=== PATIENT | female | born 1955 | race African-American/Black ===

== ENCOUNTER 2021-10-13 14:43 | Inpatient (IN) ==
[2021-10-13 19:13] LABS: Basophils % 0.4 % (0.0-0.8); Eosinophils % 0.5 % (0.00-10.9); Hematocrit 37.5 VOL% (35.7-47.0); Hemoglobin 11.9 GM/DL (12.0-16.0); Immature Granulocytes % 0.4 %; Immature Granulocytes Absolute 0.02 #; Lymphocytes # 0.7 10*3/uL (1.4-4.0); Lymphocytes % 11.9 % (21.3-54.2); Mean Corpuscular HGB Conc 31.7 GM/DL (32-36); Mean Corpuscular Volume 88.2 FL (87-102); Mean Platelet Volume 8.3 FL (9.6-12.0); Monocytes # 0.6 10*3/uL (0.11-0.8); Monocytes % 11.4 % (1.7-12.7); Neutrophils % 75.4 % (38.7-73.9); Platelet Count 340 T/CUMM (130-400); Red Blood Count 4.25 MC/CUMM (3.8-5.5); Red Cell Distribution Width 15.2 % (9.3-17.3); White Blood Count 5.5 T/CUMM (4-12)
[2021-10-13 19:29] LABS: Albumin 3.1 G/DL (3.4-5.0); Calcium 9.6 MG/DL (8.5-10.1); Osmolality,Calculated 269.1 MOS/KG (273-304); Potassium 4.8 MMOL/L (3.5-5.1); Total Protein 8.3 G/DL (6.4-8.2)
[2021-10-13] MEDS ORDERED: FUROSEMIDE 40 MG/4 ML VIAL IV STA (20:09)
[2021-10-13] MEDS ORDERED: GLUCAGON 1 MG VIAL IM PRN (21:58)
[2021-10-13] MEDS ORDERED: hydrALAZINE 20 MG/1 ML VIAL IV PRN (21:59)
[2021-10-13] MEDS ORDERED: ACETAMINOPHEN 325 MG TABLET PO PRN (21:59)
[2021-10-13] MEDS ORDERED: ONDANSETRON 4 MG/2 ML VIAL IV PRN (21:59)
[2021-10-13] MEDS ORDERED: DOCUSATE SODIUM 100 MG CAPSULE PO PRN (21:59)
[2021-10-13] MEDS ORDERED: ALBUTEROL/IPRATROPIUM 3 ML NEB RESP TX PRN (21:59)
[2021-10-13] MEDS ORDERED: DEXTROSE 10% 250 ML BAG IV PRN (22:24)
[2021-10-14] MEDS: HEPARIN 5,000 UNIT/1 ML VIAL SUBCUT SCH ×4 (01:35→23:38)
[2021-10-14 04:40] LABS: Basophils % 0.4 % (0.0-0.8); Eosinophils # 0.1 10*3/uL (0.0-0.87); Eosinophils % 1.6 % (0.00-10.9); Hematocrit 33.7 VOL% (35.7-47.0); Hemoglobin 10.3 GM/DL (12.0-16.0); Immature Granulocytes % 0.4 %; Immature Granulocytes Absolute 0.02 #; Lymphocytes # 0.5 10*3/uL (1.4-4.0); Lymphocytes % 8.9 % (21.3-54.2); Mean Corpuscular HGB Conc 30.6 GM/DL (32-36); Mean Corpuscular Volume 90.8 FL (87-102); Mean Platelet Volume 8.3 FL (9.6-12.0); Monocytes # 0.9 10*3/uL (0.11-0.8); Monocytes % 15.8 % (1.7-12.7); Neutrophils % 72.9 % (38.7-73.9); Platelet Count 288 T/CUMM (130-400); Red Blood Count 3.71 MC/CUMM (3.8-5.5); Red Cell Distribution Width 15.2 % (9.3-17.3); White Blood Count 5.6 T/CUMM (4-12)
[2021-10-14 05:01] LABS: Eosinophils 5 % (0-10); Lymphocytes 6 % (20-55); Platelet Estimate Adequate; Total Cells Counted 100
[2021-10-14 05:02] LABS: Calcium 8.8 MG/DL (8.5-10.1); Osmolality,Calculated 268.9 MOS/KG (273-304); Potassium 4.8 MMOL/L (3.5-5.1)
[2021-10-14] MEDS: FUROSEMIDE 40 MG/4 ML VIAL IV SCH ×2 (08:51→16:48)
[2021-10-14] MEDS ORDERED: carvediloL 12.5 MG TABLET PO SCH (09:00)
[2021-10-14] MEDS: DIGOXIN 0.125 MG TABLET PO SCH ×2 (09:45→16:06)
[2021-10-14] MEDS: ROSUVASTATIN 20 MG TABLET PO SCH (09:45)
[2021-10-14] MEDS: carvediloL 6.25 MG TABLET PO SCH ×2 (09:45→20:15)
[2021-10-14] MEDS: SPIRONOLACTONE 25 MG TABLET PO SCH (09:45)
[2021-10-14] MEDS: ASPIRIN EC 81 MG TABLET PO SCH (09:45)
[2021-10-14 11:29] LABS: Hyaline Casts,Urine 23 /LPF (0-3); Mucus,Urine Occasional /LPF (Occasional); RBC,Urine 275 /HPF (0-4); Squamous Epithelial Cell,Urine Occasional /HPF (0-10)
[2021-10-14 11:36] LABS: Urine Appearance Clear (Clear); Urine Color Yellow (Yellow); Urine Specific Gravity 1.015 (1.001-1.035); Urine pH 5.5 (4.5-8.0)
[2021-10-14 11:37] LABS: Bilirubin,Urine Negative (Negative); Blood, Urine Large mg/dL (Negative); Glucose,Urine (UA) Negative (Negative); Ketones,Urine Negative (Negative); Nitrite,Urine Negative (Negative); Protein,Urine 100 mg/dL (Negative)
[2021-10-14] MEDS ORDERED: cefTRIAXone 1,000 MG in SODIUM CHLORIDE 0.9% 100 ML IV SCH (15:00)
[2021-10-15 05:01] LABS: Basophils % 0.4 % (0.0-0.8); Eosinophils # 0.2 10*3/uL (0.0-0.87); Eosinophils % 3.3 % (0.00-10.9); Hematocrit 34.2 VOL% (35.7-47.0); Hemoglobin 10.8 GM/DL (12.0-16.0); Immature Granulocytes % 0.4 %; Immature Granulocytes Absolute 0.02 #; Lymphocytes # 0.5 10*3/uL (1.4-4.0); Mean Corpuscular HGB Conc 31.6 GM/DL (32-36); Mean Corpuscular Volume 89.5 FL (87-102); Mean Platelet Volume 8.4 FL (9.6-12.0); Monocytes # 0.7 10*3/uL (0.11-0.8); Monocytes % 14.4 % (1.7-12.7); Neutrophils % 71.5 % (38.7-73.9); Platelet Count 304 T/CUMM (130-400); Red Blood Count 3.82 MC/CUMM (3.8-5.5); Red Cell Distribution Width 15.3 % (9.3-17.3); White Blood Count 4.8 T/CUMM (4-12)
[2021-10-15 05:10] LABS: Calcium 9.3 MG/DL (8.5-10.1); Osmolality,Calculated 270.8 MOS/KG (273-304); Potassium 3.7 MMOL/L (3.5-5.1)
[2021-10-15 05:12] LABS: Albumin 2.6 G/DL (3.4-5.0); Bilirubin,Total 0.7 MG/DL (0.20-1.00); Calcium 8.9 MG/DL (8.5-10.1); Osmolality,Calculated 273.5 MOS/KG (273-304); Potassium 3.7 MMOL/L (3.5-5.1); Total Protein 7.5 G/DL (6.4-8.2)
[2021-10-15] MEDS ORDERED: POTASSIUM CHLORIDE RIDER 10 MEQ/100 ML PREMIX IV PRN (08:07)
[2021-10-15] MEDS ORDERED: MAGNESIUM SULF RIDER 2 GM/50 ML PREMIX IV PRN (08:07)
[2021-10-15] MEDS ORDERED: SODIUM CHLORIDE 0.9% 1,000 ML IV SCH (08:30)
[2021-10-15] MEDS: FUROSEMIDE 40 MG/4 ML VIAL IV SCH (09:09)
[2021-10-15] MEDS: HEPARIN 5,000 UNIT/1 ML VIAL SUBCUT SCH ×3 (09:09→23:16)
[2021-10-15] MEDS: ASPIRIN EC 81 MG TABLET PO SCH (09:10)
[2021-10-15] MEDS: ROSUVASTATIN 20 MG TABLET PO SCH (09:10)
[2021-10-15] MEDS: SPIRONOLACTONE 25 MG TABLET PO SCH (09:10)
[2021-10-15] MEDS: carvediloL 6.25 MG TABLET PO SCH ×2 (09:10→20:40)
[2021-10-15 09:57] LABS: Amorphous Crystals,Urine Few /HPF (Few); Mucus,Urine Occasional /LPF (Occasional); RBC,Urine 29 /HPF (0-4); Squamous Epithelial Cell,Urine Occasional /HPF (0-10)
[2021-10-15 09:58] LABS: Bilirubin,Urine Negative (Negative); Blood, Urine Large mg/dL (Negative); Glucose,Urine (UA) Negative (Negative); Ketones,Urine Negative (Negative); Nitrite,Urine Negative (Negative); Protein,Urine 100 mg/dL (Negative); Urine Appearance Clear (Clear); Urine Color Yellow (Yellow)
[2021-10-15] MEDS: DIGOXIN 0.125 MG TABLET PO SCH (12:37)
[2021-10-16 05:38] LABS: Basophils % 0.2 % (0.0-0.8); Eosinophils # 0.2 10*3/uL (0.0-0.87); Hematocrit 32.8 VOL% (35.7-47.0); Hemoglobin 9.9 GM/DL (12.0-16.0); Immature Granulocytes % 0.5 %; Immature Granulocytes Absolute 0.02 #; Lymphocytes # 0.6 10*3/uL (1.4-4.0); Lymphocytes % 13.7 % (21.3-54.2); Mean Corpuscular HGB Conc 30.2 GM/DL (32-36); Mean Corpuscular Volume 91.6 FL (87-102); Mean Platelet Volume 8.7 FL (9.6-12.0); Monocytes # 0.6 10*3/uL (0.11-0.8); Monocytes % 15.4 % (1.7-12.7); Neutrophils % 65.2 % (38.7-73.9); Platelet Count 294 T/CUMM (130-400); Red Blood Count 3.58 MC/CUMM (3.8-5.5); Red Cell Distribution Width 15.6 % (9.3-17.3); White Blood Count 4.2 T/CUMM (4-12)
[2021-10-16 05:56] LABS: Calcium 8.5 MG/DL (8.5-10.1); Osmolality,Calculated 275.2 MOS/KG (273-304); Potassium 3.6 MMOL/L (3.5-5.1)
[2021-10-16] MEDS: HEPARIN 5,000 UNIT/1 ML VIAL SUBCUT SCH ×2 (06:44→16:15)
[2021-10-16] MEDS ORDERED: ETOMIDATE 40 MG/20 ML VIAL IV ONE (09:33)
[2021-10-16] MEDS ORDERED: LIDOCAINE 2% 5 ML VIAL ONE (09:33)
[2021-10-16] MEDS ORDERED: propofoL 200 MG/20 ML VIAL IV ONE (09:33)
[2021-10-16] MEDS ORDERED: PHENYLEPHRINE 1 MG/10 ML SYRINGE IV ONE (09:33)
[2021-10-16] MEDS ORDERED: ONDANSETRON 4 MG/2 ML VIAL ONE (10:23)
[2021-10-16] MEDS ORDERED: SODIUM CHLORIDE 0.9% 1,000 ML IV SCH (10:30)
[2021-10-16] MEDS: FUROSEMIDE 40 MG/4 ML VIAL IV SCH (11:14)
[2021-10-16] MEDS: ASPIRIN EC 81 MG TABLET PO SCH (11:15)
[2021-10-16] MEDS: SPIRONOLACTONE 25 MG TABLET PO SCH (11:15)
[2021-10-16] MEDS: carvediloL 6.25 MG TABLET PO SCH ×2 (11:17→20:47)
[2021-10-16] MEDS: ROSUVASTATIN 20 MG TABLET PO SCH (11:17)
[2021-10-16] MEDS: DIGOXIN 0.125 MG TABLET PO SCH (13:01)
[2021-10-17] MEDS: HEPARIN 5,000 UNIT/1 ML VIAL SUBCUT SCH ×2 (00:20→07:27)
[2021-10-17 03:46] LABS: Basophils % 0.2 % (0.0-0.8); Eosinophils # 0.2 10*3/uL (0.0-0.87); Eosinophils % 4.6 % (0.00-10.9); Hematocrit 32.2 VOL% (35.7-47.0); Hemoglobin 9.5 GM/DL (12.0-16.0); Immature Granulocytes % 0.5 %; Immature Granulocytes Absolute 0.02 #; Lymphocytes # 0.6 10*3/uL (1.4-4.0); Lymphocytes % 14.5 % (21.3-54.2); Mean Corpuscular HGB Conc 29.5 GM/DL (32-36); Mean Corpuscular Volume 92.8 FL (87-102); Mean Platelet Volume 8.1 FL (9.6-12.0); Monocytes # 0.8 10*3/uL (0.11-0.8); Monocytes % 18.2 % (1.7-12.7); Platelet Count 259 T/CUMM (130-400); Red Blood Count 3.47 MC/CUMM (3.8-5.5); Red Cell Distribution Width 15.8 % (9.3-17.3); White Blood Count 4.3 T/CUMM (4-12)
[2021-10-17 04:07] LABS: Eosinophils 7 % (0-10); Lymphocytes 9 % (20-55); Total Cells Counted 100
[2021-10-17 04:08] LABS: Anisocytosis 1+; Platelet Estimate Adequate
[2021-10-17 04:09] LABS: Acanthocytes Few; Helmet Cells Few
[2021-10-17 04:14] LABS: Albumin 2.2 G/DL (3.4-5.0); Bilirubin,Total 0.5 MG/DL (0.20-1.00); Calcium 8.3 MG/DL (8.5-10.1); Potassium 3.6 MMOL/L (3.5-5.1); Total Protein 6.9 G/DL (6.4-8.2)
[2021-10-17] MEDS ORDERED: FUROSEMIDE 40 MG TABLET PO SCH (08:00)
[2021-10-17] MEDS ORDERED: DAPAGLIFLOZIN 10 MG TABLET PO SCH (09:00)
[2021-10-17] MEDS ORDERED: metOLazone 5 MG TABLET PO SCH (09:00)
[2021-10-17] MEDS: ASPIRIN EC 81 MG TABLET PO SCH (09:10)
[2021-10-17] MEDS: carvediloL 6.25 MG TABLET PO SCH (09:10)
[2021-10-17] MEDS: SPIRONOLACTONE 25 MG TABLET PO SCH (09:10)
[2021-10-17] MEDS: ROSUVASTATIN 20 MG TABLET PO SCH (09:10)
[2021-10-17 15:30] VITALS: BP 103/48
== END 2021-10-17 11:42 | disposition home health service (06) | DRG 286 ==
LOC: N.ED 14:43 → N.EDINP 21:57 → SUATTDRO 21:57 → N.TELES 10-14 13:08
PROVIDERS: ADMIT Internal Medicine; ATTEND Internal Medicine

== ENCOUNTER 2022-02-15 21:11 | Inpatient (IN) ==
[2022-02-15 21:38] LABS: Basophils % 0.2 % (0.0-0.8); Eosinophils # 0.1 10*3/uL (0.0-0.87); Eosinophils % 1.7 % (0.00-10.9); Hematocrit 36.3 VOL% (35.7-47.0); Hemoglobin 11.5 GM/DL (12.0-16.0); Immature Granulocytes % 0.4 %; Immature Granulocytes Absolute 0.02 #; Lymphocytes # 0.8 10*3/uL (1.4-4.0); Lymphocytes % 16.6 % (21.3-54.2); Mean Corpuscular HGB Conc 31.7 GM/DL (32-36); Mean Corpuscular Volume 92.1 FL (87-102); Mean Platelet Volume 8.2 FL (9.6-12.0); Monocytes # 0.6 10*3/uL (0.11-0.8); Monocytes % 11.4 % (1.7-12.7); Neutrophils % 69.7 % (38.7-73.9); Platelet Count 262 T/CUMM (130-400); Red Blood Count 3.94 MC/CUMM (3.8-5.5); Red Cell Distribution Width 15.6 % (9.3-17.3); White Blood Count 4.8 T/CUMM (4-12)
[2022-02-15 22:00] LABS: Bilirubin,Total 1.3 MG/DL (0.20-1.00); Calcium 9.3 MG/DL (8.5-10.1); Osmolality,Calculated 277.1 MOS/KG (273-304); Potassium 4.8 MMOL/L (3.5-5.1); Total Protein 8.1 G/DL (6.4-8.2)
[2022-02-15] MEDS ORDERED: FUROSEMIDE 40 MG/4 ML VIAL IV STA (22:40)
[2022-02-15] MEDS ORDERED: ONDANSETRON 4 MG/2 ML VIAL IV PRN (22:41)
[2022-02-15] MEDS ORDERED: MAGNESIUM SULF RIDER 4 GM/100 ML PREMIX IV PRN (22:41)
[2022-02-15] MEDS ORDERED: ACETAMINOPHEN 325 MG TABLET PO PRN (22:41)
[2022-02-15] MEDS ORDERED: ZALEPLON 5 MG CAPSULE PO PRN (22:41)
[2022-02-15] MEDS ORDERED: MAGNESIUM SULF RIDER 2 GM/50 ML PREMIX IV PRN (22:41)
[2022-02-16 06:54] LABS: Basophils % 0.2 % (0.0-0.8); Eosinophils % 0.5 % (0.00-10.9); Hematocrit 34.5 VOL% (35.7-47.0); Hemoglobin 11.1 GM/DL (12.0-16.0); Immature Granulocytes % 0.5 %; Immature Granulocytes Absolute 0.02 #; Lymphocytes # 0.6 10*3/uL (1.4-4.0); Lymphocytes % 13.1 % (21.3-54.2); Mean Corpuscular HGB Conc 32.2 GM/DL (32-36); Mean Corpuscular Volume 90.8 FL (87-102); Mean Platelet Volume 8.2 FL (9.6-12.0); Monocytes # 0.5 10*3/uL (0.11-0.8); Monocytes % 12.7 % (1.7-12.7); Platelet Count 241 T/CUMM (130-400); Red Cell Distribution Width 15.7 % (9.3-17.3); White Blood Count 4.3 T/CUMM (4-12)
[2022-02-16 07:15] LABS: Albumin 2.7 G/DL (3.4-5.0); Bilirubin,Total 1.4 MG/DL (0.20-1.00); Calcium 9.7 MG/DL (8.5-10.1); Osmolality,Calculated 271.2 MOS/KG (273-304); Potassium 4.3 MMOL/L (3.5-5.1); Total Protein 7.9 G/DL (6.4-8.2)
[2022-02-16] MEDS ORDERED: FUROSEMIDE 40 MG/4 ML VIAL IV SCH (08:00)
[2022-02-16] MEDS: PANTOPRAZOLE 40 MG TABLET PO SCH (09:51)
[2022-02-16] MEDS: DIGOXIN 0.125 MG TABLET PO SCH (09:52)
[2022-02-16] MEDS: metOLazone 5 MG TABLET PO SCH (09:52)
[2022-02-16] MEDS: ASPIRIN CHEW 81 MG TABLET PO SCH (09:52)
[2022-02-16] MEDS: ENOXAPARIN 30 MG/0.3 ML SYRINGE SUBCUT SCH (09:53)
[2022-02-16] MEDS: carvediloL 6.25 MG TABLET PO SCH ×2 (12:36→21:00)
[2022-02-16] MEDS: FUROSEMIDE 40 MG/4 ML VIAL IV SCH (16:28)
[2022-02-16] MEDS ORDERED: ROSUVASTATIN 20 MG TABLET PO SCH (21:00)
[2022-02-17] MEDS ORDERED: SIMETHICONE CHEW 125 MG TABLET PO PRN (05:32)
[2022-02-17 06:01] LABS: Basophils % 0.3 % (0.0-0.8); Eosinophils # 0.1 10*3/uL (0.0-0.87); Eosinophils % 1.7 % (0.00-10.9); Hematocrit 34.9 VOL% (35.7-47.0); Hemoglobin 11.3 GM/DL (12.0-16.0); Immature Granulocytes % 0.3 %; Immature Granulocytes Absolute 0.01 #; Lymphocytes # 0.6 10*3/uL (1.4-4.0); Lymphocytes % 18.6 % (21.3-54.2); Mean Corpuscular HGB Conc 32.4 GM/DL (32-36); Mean Corpuscular Volume 90.4 FL (87-102); Mean Platelet Volume 8.5 FL (9.6-12.0); Monocytes # 0.4 10*3/uL (0.11-0.8); Monocytes % 11.9 % (1.7-12.7); Neutrophils % 67.2 % (38.7-73.9); Platelet Count 251 T/CUMM (130-400); Red Blood Count 3.86 MC/CUMM (3.8-5.5); Red Cell Distribution Width 15.6 % (9.3-17.3); White Blood Count 3.4 T/CUMM (4-12)
[2022-02-17 06:20] LABS: Albumin 2.9 G/DL (3.4-5.0); Bilirubin,Total 1.3 MG/DL (0.20-1.00); Calcium 9.7 MG/DL (8.5-10.1); Osmolality,Calculated 274.4 MOS/KG (273-304); Potassium 4.4 MMOL/L (3.5-5.1); Total Protein 8.1 G/DL (6.4-8.2)
[2022-02-17 09:18] LABS: Hepatitis B Core IgM Quant 0.14 Index; Hepatitis B Surface Ag Quant < 0.10 Index; Hepatitis B Surface Ag Result Non-Reactive (NonReactive); Hepatitis C Virus Ab Quant 0.18 Index; Hepatitis C Virus Ab Result Non-Reactive (NonReactive)
[2022-02-17] MEDS: ENOXAPARIN 30 MG/0.3 ML SYRINGE SUBCUT SCH (09:22)
[2022-02-17] MEDS: DIGOXIN 0.125 MG TABLET PO SCH (09:22)
[2022-02-17] MEDS: ASPIRIN CHEW 81 MG TABLET PO SCH (09:22)
[2022-02-17] MEDS: carvediloL 6.25 MG TABLET PO SCH ×2 (09:22→20:31)
[2022-02-17] MEDS: FUROSEMIDE 40 MG/4 ML VIAL IV SCH ×2 (09:22→16:13)
[2022-02-17] MEDS: metOLazone 5 MG TABLET PO SCH (09:23)
[2022-02-17] MEDS: PANTOPRAZOLE 40 MG TABLET PO SCH (09:23)
[2022-02-17] MEDS ORDERED: ALUM/MAG/SIMETH/LIDO VISC 1:1 30 ML BOTTLE PO ONE (09:50)
[2022-02-18 05:27] LABS: Basophils % 0.4 % (0.0-0.8); Eosinophils % 1.1 % (0.00-10.9); Hematocrit 34.4 VOL% (35.7-47.0); Hemoglobin 11.1 GM/DL (12.0-16.0); Immature Granulocytes % 0.7 %; Immature Granulocytes Absolute 0.02 #; Lymphocytes # 0.5 10*3/uL (1.4-4.0); Lymphocytes % 16.7 % (21.3-54.2); Mean Corpuscular HGB Conc 32.3 GM/DL (32-36); Mean Corpuscular Volume 90.3 FL (87-102); Mean Platelet Volume 8.5 FL (9.6-12.0); Monocytes # 0.3 10*3/uL (0.11-0.8); Monocytes % 10.9 % (1.7-12.7); Neutrophils % 70.2 % (38.7-73.9); Platelet Count 218 T/CUMM (130-400); Red Blood Count 3.81 MC/CUMM (3.8-5.5); White Blood Count 2.8 T/CUMM (4-12)
[2022-02-18 05:47] LABS: Albumin 2.8 G/DL (3.4-5.0); Bilirubin,Total 1.2 MG/DL (0.20-1.00); Calcium 9.6 MG/DL (8.5-10.1); Osmolality,Calculated 270.9 MOS/KG (273-304); Potassium 4.4 MMOL/L (3.5-5.1); Total Protein 7.9 G/DL (6.4-8.2)
[2022-02-18] MEDS: PANTOPRAZOLE 40 MG TABLET PO SCH (09:04)
[2022-02-18] MEDS: ASPIRIN CHEW 81 MG TABLET PO SCH (09:04)
[2022-02-18] MEDS: carvediloL 6.25 MG TABLET PO SCH ×2 (09:04→21:55)
[2022-02-18] MEDS: metOLazone 5 MG TABLET PO SCH (09:04)
[2022-02-18] MEDS: FUROSEMIDE 40 MG/4 ML VIAL IV SCH ×2 (09:04→16:22)
[2022-02-18] MEDS: DIGOXIN 0.125 MG TABLET PO SCH (09:04)
[2022-02-18] MEDS: ENOXAPARIN 30 MG/0.3 ML SYRINGE SUBCUT SCH (09:05)
[2022-02-18] MEDS: DOBUTamine 500 MG/250 ML PREMIX IV SCH (09:08)
[2022-02-19 06:14] LABS: Eosinophils # 0.1 10*3/uL (0.0-0.87); Eosinophils % 2.1 % (0.00-10.9); Hematocrit 32.7 VOL% (35.7-47.0); Hemoglobin 10.8 GM/DL (12.0-16.0); Lymphocytes # 0.4 10*3/uL (1.4-4.0); Lymphocytes % 13.7 % (21.3-54.2); Mean Corpuscular Volume 89.3 FL (87-102); Mean Platelet Volume 8.6 FL (9.6-12.0); Monocytes # 0.4 10*3/uL (0.11-0.8); Monocytes % 13.7 % (1.7-12.7); Neutrophils % 70.5 % (38.7-73.9); Platelet Count 217 T/CUMM (130-400); Red Blood Count 3.66 MC/CUMM (3.8-5.5); White Blood Count 2.8 T/CUMM (4-12)
[2022-02-19 06:38] LABS: Albumin 2.7 G/DL (3.4-5.0); Bilirubin,Total 1.1 MG/DL (0.20-1.00); Calcium 9.4 MG/DL (8.5-10.1); Osmolality,Calculated 270.8 MOS/KG (273-304); Potassium 3.1 MMOL/L (3.5-5.1); Total Protein 7.7 G/DL (6.4-8.2)
[2022-02-19] MEDS: FUROSEMIDE 40 MG/4 ML VIAL IV SCH ×2 (10:01→17:14)
[2022-02-19] MEDS: POTASSIUM CHLORIDE 20 MEQ TABLET PO SCH ×2 (10:01→12:12)
[2022-02-19] MEDS: DOBUTamine 500 MG/250 ML PREMIX IV SCH (10:01)
[2022-02-19] MEDS: carvediloL 6.25 MG TABLET PO SCH ×2 (10:02→21:37)
[2022-02-19] MEDS: ENOXAPARIN 30 MG/0.3 ML SYRINGE SUBCUT SCH (10:02)
[2022-02-19] MEDS: ASPIRIN CHEW 81 MG TABLET PO SCH (10:02)
[2022-02-19] MEDS: metOLazone 5 MG TABLET PO SCH (10:02)
[2022-02-19] MEDS: DIGOXIN 0.125 MG TABLET PO SCH (10:02)
[2022-02-19] MEDS: PANTOPRAZOLE 40 MG TABLET PO SCH (10:02)
[2022-02-19] MEDS ORDERED: POTASSIUM CHLORIDE 20 MEQ TABLET PO SCH (11:30)
[2022-02-20 05:15] LABS: Basophils % 0.3 % (0.0-0.8); Eosinophils # 0.1 10*3/uL (0.0-0.87); Eosinophils % 2.7 % (0.00-10.9); Hematocrit 34.9 VOL% (35.7-47.0); Hemoglobin 11.2 GM/DL (12.0-16.0); Lymphocytes # 0.5 10*3/uL (1.4-4.0); Lymphocytes % 14.8 % (21.3-54.2); Mean Corpuscular HGB Conc 32.1 GM/DL (32-36); Mean Corpuscular Volume 89.9 FL (87-102); Mean Platelet Volume 8.2 FL (9.6-12.0); Monocytes # 0.6 10*3/uL (0.11-0.8); Monocytes % 17.8 % (1.7-12.7); Neutrophils % 64.4 % (38.7-73.9); Platelet Count 249 T/CUMM (130-400); Red Blood Count 3.88 MC/CUMM (3.8-5.5); White Blood Count 3.4 T/CUMM (4-12)
[2022-02-20 05:38] LABS: Bilirubin,Total 1.1 MG/DL (0.20-1.00); Calcium 9.3 MG/DL (8.5-10.1); Osmolality,Calculated 272.4 MOS/KG (273-304); Potassium 3.9 MMOL/L (3.5-5.1); Total Protein 8.4 G/DL (6.4-8.2)
[2022-02-20 05:54] LABS: Eosinophils 5 % (0-10); Hypochromia Slight; Lymphocytes 12 % (20-55); Microcytosis Slight; Platelet Estimate Adequate; Total Cells Counted 100
[2022-02-20] MEDS: DIGOXIN 0.125 MG TABLET PO SCH (10:03)
[2022-02-20] MEDS: ASPIRIN CHEW 81 MG TABLET PO SCH (10:03)
[2022-02-20] MEDS: PANTOPRAZOLE 40 MG TABLET PO SCH (10:03)
[2022-02-20] MEDS: ENOXAPARIN 30 MG/0.3 ML SYRINGE SUBCUT SCH (10:04)
[2022-02-20] MEDS: DOBUTamine 500 MG/250 ML PREMIX IV SCH (10:10)
[2022-02-20] MEDS: carvediloL 6.25 MG TABLET PO SCH ×2 (12:37→21:09)
[2022-02-20] MEDS: FUROSEMIDE 40 MG/4 ML VIAL IV SCH (14:00)
[2022-02-20] MEDS: metOLazone 5 MG TABLET PO SCH (14:00)
[2022-02-20] MEDS: FUROSEMIDE 20 MG TABLET PO SCH (16:47)
[2022-02-21 05:53] LABS: Albumin 2.7 G/DL (3.4-5.0); Bilirubin,Total 0.8 MG/DL (0.20-1.00); Calcium 8.7 MG/DL (8.5-10.1); Osmolality,Calculated 265.8 MOS/KG (273-304); Potassium 3.6 MMOL/L (3.5-5.1); Total Protein 7.8 G/DL (6.4-8.2)
[2022-02-21] MEDS: FUROSEMIDE 20 MG TABLET PO SCH (09:03)
[2022-02-21] MEDS: ASPIRIN CHEW 81 MG TABLET PO SCH (09:04)
[2022-02-21] MEDS: ENOXAPARIN 30 MG/0.3 ML SYRINGE SUBCUT SCH (09:04)
[2022-02-21] MEDS: DIGOXIN 0.125 MG TABLET PO SCH (09:04)
[2022-02-21] MEDS: PANTOPRAZOLE 40 MG TABLET PO SCH (09:04)
[2022-02-21] MEDS: carvediloL 6.25 MG TABLET PO SCH (09:04)
[2022-02-21] MEDS: metOLazone 5 MG TABLET PO SCH (09:05)
[2022-02-21 13:10] VITALS: BP 110/52
== END 2022-02-21 14:15 | disposition home or self-care (01) | DRG 291 ==
LOC: N.ED 21:11 → N.EDINP 22:41 → N.TELEN 02-16 00:32
PROVIDERS: ADMIT Emergency Medicine; ATTEND Emergency Medicine

== ENCOUNTER 2022-04-03 04:24 | Inpatient (IN) ==
[2022-04-03] MEDS ORDERED: FUROSEMIDE 100 MG/10 ML VIAL IV STA (04:53)
[2022-04-03] MEDS ORDERED: ONDANSETRON 4 MG/2 ML VIAL IV STA (04:53)
[2022-04-03] MEDS ORDERED: ASPIRIN 325 MG TABLET PO STA (04:53)
[2022-04-03] MEDS ORDERED: ALBUTEROL/IPRATROPIUM 3 ML NEB RESP TX STA (04:54)
[2022-04-03 05:01] LABS: Basophils % 0.6 % (0.0-0.8); Eosinophils # 0.1 10*3/uL (0.0-0.87); Eosinophils % 1.7 % (0.00-10.9); Hemoglobin 11.9 GM/DL (12.0-16.0); Immature Granulocytes % 0.3 %; Immature Granulocytes Absolute 0.01 #; Lymphocytes # 0.6 10*3/uL (1.4-4.0); Lymphocytes % 16.8 % (21.3-54.2); Mean Corpuscular HGB Conc 32.2 GM/DL (32-36); Mean Corpuscular Volume 90.5 FL (87-102); Mean Platelet Volume 8.6 FL (9.6-12.0); Monocytes # 0.5 10*3/uL (0.11-0.8); Monocytes % 15.1 % (1.7-12.7); NRBC # 0.02 10*3/uL; Neutrophils % 65.5 % (38.7-73.9); Platelet Count 265 T/CUMM (130-400); Red Blood Count 4.09 MC/CUMM (3.8-5.5); Red Cell Distribution Width 14.8 % (9.3-17.3); White Blood Count 3.6 T/CUMM (4-12)
[2022-04-03 05:12] LABS: INR 1.3; Partial Thromboplastin Time 30.9 SECS (23.7-32.9)
[2022-04-03 05:20] LABS: Bilirubin,Total 1.6 MG/DL (0.20-1.00); Calcium 9.6 MG/DL (8.5-10.1); Osmolality,Calculated 277.8 MOS/KG (273-304); Potassium 5.2 MMOL/L (3.5-5.1)
[2022-04-03] MEDS ORDERED: hydrALAZINE 20 MG/1 ML VIAL IV PRN (06:02)
[2022-04-03] MEDS: ALBUTEROL/IPRATROPIUM 3 ML NEB RESP TX SCH ×3 (07:10→20:05)
[2022-04-03] MEDS: FUROSEMIDE 40 MG/4 ML VIAL IV SCH (15:50)
[2022-04-03] MEDS: PANTOPRAZOLE 40 MG TABLET PO SCH (15:50)
[2022-04-03] MEDS: DOCUSATE SODIUM 100 MG CAPSULE PO SCH ×2 (15:50→21:42)
[2022-04-03] MEDS: HEPARIN 5,000 UNIT/1 ML VIAL SUBCUT SCH ×2 (15:50→21:42)
[2022-04-03] MEDS: metOLazone 5 MG TABLET PO SCH (15:50)
[2022-04-03] MEDS: carvediloL 6.25 MG TABLET PO SCH (18:29)
[2022-04-04] MEDS: ALBUTEROL/IPRATROPIUM 3 ML NEB RESP TX SCH ×4 (02:59→19:25)
[2022-04-04 06:09] LABS: Basophils % 0.7 % (0.0-0.8); Eosinophils # 0.1 10*3/uL (0.0-0.87); Eosinophils % 2.4 % (0.00-10.9); Hematocrit 33.8 VOL% (35.7-47.0); Hemoglobin 10.7 GM/DL (12.0-16.0); Immature Granulocytes % 0.3 %; Immature Granulocytes Absolute 0.01 #; Lymphocytes # 0.6 10*3/uL (1.4-4.0); Lymphocytes % 18.7 % (21.3-54.2); Mean Corpuscular HGB Conc 31.7 GM/DL (32-36); Mean Corpuscular Volume 88.9 FL (87-102); Mean Platelet Volume 8.5 FL (9.6-12.0); Monocytes # 0.5 10*3/uL (0.11-0.8); NRBC # 0.02 10*3/uL; Neutrophils % 61.9 % (38.7-73.9); Platelet Count 227 T/CUMM (130-400); Red Cell Distribution Width 14.8 % (9.3-17.3); White Blood Count 2.9 T/CUMM (4-12)
[2022-04-04 06:24] LABS: Albumin 2.7 G/DL (3.4-5.0); Bilirubin,Total 1.4 MG/DL (0.20-1.00); Calcium 9.2 MG/DL (8.5-10.1); Osmolality,Calculated 277.9 MOS/KG (273-304); Potassium 5.1 MMOL/L (3.5-5.1); Risk Ratio 4.75; Total Protein 7.1 G/DL (6.4-8.2); VLDL Cholesterol 11.8 MG/DL
[2022-04-04 06:57] LABS: Lymphocytes 24 % (20-55); Platelet Estimate Normal; Total Cells Counted 100
[2022-04-04] MEDS ORDERED: SPIRONOLACTONE 25 MG TABLET PO SCH (09:00)
[2022-04-04] MEDS ORDERED: FUROSEMIDE 40 MG/4 ML VIAL IV SCH (09:00)
[2022-04-04] MEDS ORDERED: metOLazone 5 MG TABLET PO SCH (09:00)
[2022-04-04] MEDS ORDERED: DIGOXIN 0.125 MG TABLET PO SCH (09:00)
[2022-04-04] MEDS: metOLazone 5 MG TABLET PO SCH (09:09)
[2022-04-04] MEDS: carvediloL 3.125 MG TABLET PO SCH ×2 (09:09→17:04)
[2022-04-04] MEDS: PANTOPRAZOLE 40 MG TABLET PO SCH (09:09)
[2022-04-04] MEDS: FUROSEMIDE 40 MG/4 ML VIAL IV SCH (09:09)
[2022-04-04] MEDS: DOCUSATE SODIUM 100 MG CAPSULE PO SCH ×2 (09:09→20:36)
[2022-04-04] MEDS: HEPARIN 5,000 UNIT/1 ML VIAL SUBCUT SCH ×2 (09:10→20:36)
[2022-04-04] MEDS: carvediloL 6.25 MG TABLET PO SCH (10:05)
[2022-04-04] MEDS: ASPIRIN CHEW 81 MG TABLET PO SCH (10:57)
[2022-04-04] MEDS ORDERED: FUROSEMIDE 40 MG TABLET PO SCH (16:00)
[2022-04-05] MEDS: ONDANSETRON 4 MG/2 ML VIAL IV PRN ×2 (00:13→20:39)
[2022-04-05] MEDS: ALBUTEROL/IPRATROPIUM 3 ML NEB RESP TX SCH ×4 (00:48→19:09)
[2022-04-05 05:31] LABS: Basophils % 0.3 % (0.0-0.8); Eosinophils # 0.1 10*3/uL (0.0-0.87); Eosinophils % 2.4 % (0.00-10.9); Hematocrit 32.7 VOL% (35.7-47.0); Hemoglobin 10.7 GM/DL (12.0-16.0); Immature Granulocytes % 0.3 %; Immature Granulocytes Absolute 0.01 #; Lymphocytes # 0.4 10*3/uL (1.4-4.0); Mean Corpuscular HGB Conc 32.7 GM/DL (32-36); Mean Corpuscular Volume 89.6 FL (87-102); Mean Platelet Volume 8.7 FL (9.6-12.0); Monocytes # 0.5 10*3/uL (0.11-0.8); NRBC # 0.04 10*3/uL; Platelet Count 213 T/CUMM (130-400); Red Blood Count 3.65 MC/CUMM (3.8-5.5); Red Cell Distribution Width 14.7 % (9.3-17.3); White Blood Count 2.9 T/CUMM (4-12)
[2022-04-05 05:42] LABS: Calcium 9.1 MG/DL (8.5-10.1); Osmolality,Calculated 267.8 MOS/KG (273-304); Potassium 4.7 MMOL/L (3.5-5.1)
[2022-04-05 06:51] LABS: Eosinophils 1 % (0-10); Lymphocytes 13 % (20-55); Platelet Estimate Normal; Total Cells Counted 100
[2022-04-05 06:52] LABS: Anisocytosis 2+; Burr Cells Few; Macrocytosis 1+; Target Cells Few
[2022-04-05] MEDS ORDERED: ALUMINUM/MAGNES/SIMETH MAX STR 30 ML UDCUP PO ONE (07:16)
[2022-04-05] MEDS: ASPIRIN CHEW 81 MG TABLET PO SCH (10:03)
[2022-04-05] MEDS: HEPARIN 5,000 UNIT/1 ML VIAL SUBCUT SCH ×2 (10:03→20:40)
[2022-04-05] MEDS: DOCUSATE SODIUM 100 MG CAPSULE PO SCH ×2 (10:03→20:39)
[2022-04-05] MEDS: PANTOPRAZOLE 40 MG TABLET PO SCH (10:04)
[2022-04-05] MEDS: SODIUM BICARBONATE 650 MG TABLET PO SCH ×2 (12:05→20:40)
[2022-04-05] MEDS: ALUMINUM/MAGNES/SIMETH MAX STR 30 ML UDCUP PO PRN (18:41)
[2022-04-06] MEDS: ALBUTEROL/IPRATROPIUM 3 ML NEB RESP TX SCH ×4 (00:23→19:30)
[2022-04-06 04:59] LABS: Basophils % 0.3 % (0.0-0.8); Eosinophils % 0.6 % (0.00-10.9); Hematocrit 31.9 VOL% (35.7-47.0); Hemoglobin 10.5 GM/DL (12.0-16.0); Immature Granulocytes % 0.3 %; Immature Granulocytes Absolute 0.01 #; Lymphocytes # 0.5 10*3/uL (1.4-4.0); Lymphocytes % 15.2 % (21.3-54.2); Mean Corpuscular HGB Conc 32.9 GM/DL (32-36); Mean Corpuscular Volume 87.4 FL (87-102); Mean Platelet Volume 8.7 FL (9.6-12.0); Monocytes # 0.4 10*3/uL (0.11-0.8); NRBC # 0.02 10*3/uL; Neutrophils % 70.6 % (38.7-73.9); Platelet Count 213 T/CUMM (130-400); Red Blood Count 3.65 MC/CUMM (3.8-5.5); Red Cell Distribution Width 14.6 % (9.3-17.3); White Blood Count 3.3 T/CUMM (4-12)
[2022-04-06 05:15] LABS: Calcium 9.1 MG/DL (8.5-10.1); Osmolality,Calculated 274.5 MOS/KG (273-304); Potassium 4.5 MMOL/L (3.5-5.1)
[2022-04-06 05:18] LABS: Albumin 2.9 G/DL (3.4-5.0); Bilirubin,Direct 0.94 MG/DL (0.0-0.20); Bilirubin,Indirect 0.8 MG/DL (0.0-1.0); Bilirubin,Total 1.7 MG/DL (0.20-1.00); Total Protein 7.5 G/DL (6.4-8.2)
[2022-04-06] MEDS: ASPIRIN CHEW 81 MG TABLET PO SCH (08:52)
[2022-04-06] MEDS: HEPARIN 5,000 UNIT/1 ML VIAL SUBCUT SCH ×2 (08:52→20:28)
[2022-04-06] MEDS: SODIUM BICARBONATE 650 MG TABLET PO SCH ×2 (08:52→20:28)
[2022-04-06] MEDS: POLYETHYLENE GLYCOL POWDER 17 GM PACK PO SCH ×2 (08:52→20:28)
[2022-04-06] MEDS: DOCUSATE SODIUM 100 MG CAPSULE PO SCH ×2 (08:52→20:28)
[2022-04-06] MEDS: PANTOPRAZOLE 40 MG TABLET PO SCH (08:52)
[2022-04-06] MEDS: TORSEMIDE 20 MG TABLET PO SCH (14:44)
[2022-04-06] MEDS: hydrALAZINE 25 MG TABLET PO SCH ×2 (14:44→20:27)
[2022-04-06] MEDS: ONDANSETRON 4 MG/2 ML VIAL IV PRN (18:37)
[2022-04-06 19:39] LABS: Bacteria,Urine Occasional /HPF (Few); Bilirubin,Urine Negative (Negative); Blood, Urine Negative (Negative); Glucose,Urine (UA) Negative (Negative); Hyaline Casts,Urine 59 /LPF (0-3); Ketones,Urine Negative (Negative); Mucus,Urine Occasional /LPF (Occasional); Nitrite,Urine Negative (Negative); Protein,Urine Negative (Negative); RBC,Urine 1 /HPF (0-4); Squamous Epithelial Cell,Urine Occasional /HPF (0-10); Urine Appearance CLEAR (Clear); Urine Color Yellow (Yellow); Urine Specific Gravity 1.011 (1.001-1.035)
[2022-04-06] MEDS ORDERED: METOPROLOL TARTRATE 25 MG TABLET PO SCH (21:00)
[2022-04-07] MEDS: ALBUTEROL/IPRATROPIUM 3 ML NEB RESP TX SCH ×4 (00:46→21:24)
[2022-04-07] MEDS: ONDANSETRON 4 MG/2 ML VIAL IV PRN (02:00)
[2022-04-07 06:08] LABS: Basophils % 0.3 % (0.0-0.8); Eosinophils % 0.5 % (0.00-10.9); Hematocrit 32.4 VOL% (35.7-47.0); Hemoglobin 10.6 GM/DL (12.0-16.0); Immature Granulocytes % 0.8 %; Immature Granulocytes Absolute 0.03 #; Lymphocytes # 0.4 10*3/uL (1.4-4.0); Lymphocytes % 9.4 % (21.3-54.2); Mean Corpuscular HGB Conc 32.7 GM/DL (32-36); Mean Corpuscular Volume 86.4 FL (87-102); Mean Platelet Volume 8.8 FL (9.6-12.0); Monocytes # 0.5 10*3/uL (0.11-0.8); Monocytes % 12.9 % (1.7-12.7); NRBC # 0.03 10*3/uL; Neutrophils % 76.1 % (38.7-73.9); Platelet Count 214 T/CUMM (130-400); Red Blood Count 3.75 MC/CUMM (3.8-5.5); Red Cell Distribution Width 14.9 % (9.3-17.3); White Blood Count 3.7 T/CUMM (4-12)
[2022-04-07 06:28] LABS: Calcium 9.9 MG/DL (8.5-10.1); Osmolality,Calculated 269.1 MOS/KG (273-304); Potassium 4.4 MMOL/L (3.5-5.1)
[2022-04-07] MEDS: ISOSORBIDE MONONITRATE 30 MG TABLET PO SCH (08:49)
[2022-04-07] MEDS: PANTOPRAZOLE 40 MG TABLET PO SCH (08:49)
[2022-04-07] MEDS: hydrALAZINE 25 MG TABLET PO SCH ×3 (08:49→21:59)
[2022-04-07] MEDS: ASPIRIN CHEW 81 MG TABLET PO SCH (08:49)
[2022-04-07] MEDS: SODIUM BICARBONATE 650 MG TABLET PO SCH ×2 (08:49→21:59)
[2022-04-07] MEDS: TORSEMIDE 20 MG TABLET PO SCH (08:49)
[2022-04-07] MEDS: POLYETHYLENE GLYCOL POWDER 17 GM PACK PO SCH ×2 (08:49→21:59)
[2022-04-07] MEDS: HEPARIN 5,000 UNIT/1 ML VIAL SUBCUT SCH (08:49)
[2022-04-07] MEDS: DOCUSATE SODIUM 100 MG CAPSULE PO SCH ×2 (08:49→21:59)
[2022-04-07] MEDS ORDERED: MAGNESIUM CITRATE 300 ML BOTTLE PO ONE (10:13)
[2022-04-07] MEDS ORDERED: LACTULOSE 20 GM/30 ML UDCUP PO ONE (10:29)
[2022-04-07] MEDS ORDERED: LACTULOSE 20 GM/30 ML UDCUP PO PRN (13:20)
[2022-04-07] MEDS ORDERED: SODIUM CHLORIDE 0.9% 1,000 ML IV SCH (13:30)
[2022-04-07] MEDS: SODIUM CHLORIDE/POTASSIUM CHLORIDE TABLET PO SCH ×2 (14:43→21:59)
[2022-04-08] MEDS: ALBUTEROL/IPRATROPIUM 3 ML NEB RESP TX SCH ×4 (00:38→19:12)
[2022-04-08 05:35] LABS: Basophils % 0.3 % (0.0-0.8); Eosinophils % 0.5 % (0.00-10.9); Hematocrit 31.8 VOL% (35.7-47.0); Hemoglobin 10.4 GM/DL (12.0-16.0); Immature Granulocytes % 0.5 %; Immature Granulocytes Absolute 0.02 #; Lymphocytes # 0.4 10*3/uL (1.4-4.0); Mean Corpuscular HGB Conc 32.7 GM/DL (32-36); Mean Corpuscular Volume 87.4 FL (87-102); Mean Platelet Volume 8.8 FL (9.6-12.0); Monocytes # 0.5 10*3/uL (0.11-0.8); Monocytes % 13.9 % (1.7-12.7); Neutrophils % 72.8 % (38.7-73.9); Platelet Count 205 T/CUMM (130-400); Red Blood Count 3.64 MC/CUMM (3.8-5.5); Red Cell Distribution Width 14.8 % (9.3-17.3); White Blood Count 3.7 T/CUMM (4-12)
[2022-04-08 05:59] LABS: Calcium 9.6 MG/DL (8.5-10.1); Osmolality,Calculated 277.5 MOS/KG (273-304); Potassium 4.4 MMOL/L (3.5-5.1)
[2022-04-08] MEDS ORDERED: LACTATED RINGERS 1,000 ML IV SCH (08:00)
[2022-04-08] MEDS ORDERED: SODIUM CHLORIDE 0.9% 250 ML IV SCH (08:00)
[2022-04-08] MEDS: DOCUSATE SODIUM 100 MG CAPSULE PO SCH ×2 (09:00→20:41)
[2022-04-08] MEDS: ISOSORBIDE MONONITRATE 30 MG TABLET PO SCH (09:00)
[2022-04-08] MEDS: hydrALAZINE 25 MG TABLET PO SCH (09:00)
[2022-04-08] MEDS: SODIUM CHLORIDE/POTASSIUM CHLORIDE TABLET PO SCH ×3 (09:00→20:41)
[2022-04-08] MEDS: SODIUM BICARBONATE 650 MG TABLET PO SCH ×2 (09:00→20:41)
[2022-04-08] MEDS: POLYETHYLENE GLYCOL POWDER 17 GM PACK PO SCH ×2 (09:00→20:41)
[2022-04-08] MEDS: SODIUM CHLORIDE 0.9% 1,000 ML IV SCH ×2 (10:38→21:24)
[2022-04-08] MEDS ORDERED: FAMOTIDINE 20 MG/2 ML VIAL IV ONE (10:44)
[2022-04-08] MEDS ORDERED: ETOMIDATE 20 MG/10 ML VIAL IV ONE (11:48)
[2022-04-08] MEDS ORDERED: LIDOCAINE 2% 5 ML VIAL ONE (11:48)
[2022-04-08] MEDS ORDERED: propofoL 200 MG/20 ML VIAL IV ONE (11:48)
[2022-04-08] MEDS ORDERED: PHENYLEPHRINE 1 MG/10 ML SYRINGE IV ONE (11:48)
[2022-04-08] MEDS ORDERED: ONDANSETRON 4 MG/2 ML VIAL ONE (11:49)
[2022-04-08] MEDS ORDERED: ePHEDrine 50 MG/ML VIAL ONE (11:51)
[2022-04-08] MEDS: ONDANSETRON 4 MG/2 ML VIAL IV PRN ×2 (13:19→21:24)
[2022-04-08] MEDS: PANTOPRAZOLE 40 MG TABLET PO SCH (16:53)
[2022-04-08] MEDS: ASPIRIN CHEW 81 MG TABLET PO SCH (16:53)
[2022-04-08] MEDS: carvediloL 3.125 MG TABLET PO SCH (20:41)
[2022-04-09] MEDS: ALBUTEROL/IPRATROPIUM 3 ML NEB RESP TX SCH ×4 (00:21→19:37)
[2022-04-09 05:27] LABS: Eosinophils % 0.3 % (0.00-10.9); Hematocrit 33.9 VOL% (35.7-47.0); Immature Granulocytes % 0.5 %; Immature Granulocytes Absolute 0.02 #; Lymphocytes # 0.4 10*3/uL (1.4-4.0); Mean Corpuscular HGB Conc 32.4 GM/DL (32-36); Mean Corpuscular Volume 86.7 FL (87-102); Monocytes # 0.5 10*3/uL (0.11-0.8); Monocytes % 12.6 % (1.7-12.7); NRBC # 0.03 10*3/uL; Neutrophils % 77.6 % (38.7-73.9); Platelet Count 201 T/CUMM (130-400); Red Blood Count 3.91 MC/CUMM (3.8-5.5); Red Cell Distribution Width 15.2 % (9.3-17.3); White Blood Count 3.9 T/CUMM (4-12)
[2022-04-09 05:41] LABS: Calcium 9.3 MG/DL (8.5-10.1); Osmolality,Calculated 280.5 MOS/KG (273-304); Potassium 4.8 MMOL/L (3.5-5.1)
[2022-04-09 05:43] LABS: Calcium 9.7 MG/DL (8.5-10.1); Osmolality,Calculated 280.6 MOS/KG (273-304); Potassium 4.7 MMOL/L (3.5-5.1)
[2022-04-09] MEDS: ONDANSETRON 4 MG/2 ML VIAL IV PRN (05:43)
[2022-04-09] MEDS: ASPIRIN CHEW 81 MG TABLET PO SCH (08:31)
[2022-04-09] MEDS: DOCUSATE SODIUM 100 MG CAPSULE PO SCH ×3 (08:31→22:59)
[2022-04-09] MEDS: POLYETHYLENE GLYCOL POWDER 17 GM PACK PO SCH ×3 (08:31→22:59)
[2022-04-09] MEDS: carvediloL 3.125 MG TABLET PO SCH ×3 (08:32→22:58)
[2022-04-09] MEDS: SODIUM CHLORIDE/POTASSIUM CHLORIDE TABLET PO SCH ×4 (08:32→23:10)
[2022-04-09] MEDS: SODIUM BICARBONATE 650 MG TABLET PO SCH ×3 (08:32→23:10)
[2022-04-09] MEDS: PANTOPRAZOLE 40 MG TABLET PO SCH (08:33)
[2022-04-09] MEDS ORDERED: SODIUM CHLORIDE 0.9% 250 ML IV ONE (09:51)
[2022-04-09] MEDS: ONDANSETRON 4 MG TABLET PO SCH ×3 (10:32→22:59)
[2022-04-09] MEDS: SODIUM CHLORIDE 0.9% 1,000 ML IV SCH (11:54)
[2022-04-10] MEDS: ALBUTEROL/IPRATROPIUM 3 ML NEB RESP TX SCH ×4 (00:02→19:28)
[2022-04-10 06:01] LABS: Hematocrit 34.7 VOL% (35.7-47.0); Hemoglobin 11.1 GM/DL (12.0-16.0); Immature Granulocytes % 0.7 %; Immature Granulocytes Absolute 0.03 #; Lymphocytes # 0.3 10*3/uL (1.4-4.0); Lymphocytes % 7.7 % (21.3-54.2); Mean Corpuscular Volume 88.5 FL (87-102); Mean Platelet Volume 9.3 FL (9.6-12.0); Monocytes # 0.5 10*3/uL (0.11-0.8); Monocytes % 11.2 % (1.7-12.7); NRBC # 0.03 10*3/uL; Neutrophils % 80.4 % (38.7-73.9); Platelet Count 192 T/CUMM (130-400); Red Blood Count 3.92 MC/CUMM (3.8-5.5); Red Cell Distribution Width 15.6 % (9.3-17.3)
[2022-04-10 06:19] LABS: Calcium 9.6 MG/DL (8.5-10.1); Osmolality,Calculated 288.1 MOS/KG (273-304); Potassium 5.2 MMOL/L (3.5-5.1)
[2022-04-10] MEDS: SODIUM BICARBONATE 650 MG TABLET PO SCH ×2 (09:19→20:09)
[2022-04-10] MEDS: ASPIRIN CHEW 81 MG TABLET PO SCH (09:19)
[2022-04-10] MEDS: SODIUM CHLORIDE/POTASSIUM CHLORIDE TABLET PO SCH ×4 (09:19→20:09)
[2022-04-10] MEDS: ONDANSETRON 4 MG TABLET PO SCH ×3 (09:20→21:06)
[2022-04-10] MEDS: carvediloL 3.125 MG TABLET PO SCH ×2 (09:20→21:07)
[2022-04-10] MEDS: PANTOPRAZOLE 40 MG TABLET PO SCH (09:20)
[2022-04-10] MEDS: DOCUSATE SODIUM 100 MG CAPSULE PO SCH ×2 (10:05→20:08)
[2022-04-10] MEDS: POLYETHYLENE GLYCOL POWDER 17 GM PACK PO SCH ×2 (10:05→20:08)
[2022-04-10] MEDS: ALBUMIN 25% 12.5 GM/50 ML VIAL IV SCH ×2 (10:19→21:06)
[2022-04-10] MEDS: SODIUM CHLORIDE 0.9% 1,000 ML IV SCH (13:29)
[2022-04-11] MEDS: guaiFENesin 200 MG/10 ML UDCUP PO PRN (02:19)
[2022-04-11] MEDS: ALBUTEROL/IPRATROPIUM 3 ML NEB RESP TX SCH ×4 (02:40→19:57)
[2022-04-11] MEDS: ALUMINUM/MAGNES/SIMETH MAX STR 30 ML UDCUP PO PRN (02:49)
[2022-04-11 05:45] LABS: Hemoglobin 10.3 GM/DL (12.0-16.0); Immature Granulocytes % 0.6 %; Immature Granulocytes Absolute 0.03 #; Lymphocytes # 0.2 10*3/uL (1.4-4.0); Lymphocytes % 4.8 % (21.3-54.2); Mean Corpuscular HGB Conc 32.2 GM/DL (32-36); Mean Corpuscular Volume 88.4 FL (87-102); Mean Platelet Volume 9.4 FL (9.6-12.0); Monocytes # 0.5 10*3/uL (0.11-0.8); NRBC # 0.03 10*3/uL; Neutrophils % 83.6 % (38.7-73.9); Platelet Count 127 T/CUMM (130-400); Red Blood Count 3.62 MC/CUMM (3.8-5.5); Red Cell Distribution Width 15.3 % (9.3-17.3); White Blood Count 4.8 T/CUMM (4-12)
[2022-04-11 06:12] LABS: Calcium 9.7 MG/DL (8.5-10.1); Osmolality,Calculated 289.2 MOS/KG (273-304); Potassium 5.5 MMOL/L (3.5-5.1)
[2022-04-11 07:14] LABS: Band Neutrophils 1 % (0-10); Burr Cells Slight; Hypochromia 1+; Lymphocytes 3 % (20-55); Nucleated Red Blood Cells 1 /100 WBC (0-5); Target Cells Slight; Total Cells Counted 100
[2022-04-11 07:15] LABS: Anisocytosis 1+; Polychromasia Slight
[2022-04-11 07:16] LABS: Platelet Estimate Adequate
[2022-04-11] MEDS: ASPIRIN CHEW 81 MG TABLET PO SCH (08:58)
[2022-04-11] MEDS: POLYETHYLENE GLYCOL POWDER 17 GM PACK PO SCH ×2 (08:58→22:10)
[2022-04-11] MEDS: ONDANSETRON 4 MG TABLET PO SCH ×3 (08:58→22:11)
[2022-04-11] MEDS: carvediloL 3.125 MG TABLET PO SCH ×2 (08:58→22:47)
[2022-04-11] MEDS: DOCUSATE SODIUM 100 MG CAPSULE PO SCH ×2 (08:58→22:11)
[2022-04-11] MEDS: SODIUM CHLORIDE/POTASSIUM CHLORIDE TABLET PO SCH ×3 (08:58→22:47)
[2022-04-11] MEDS: PANTOPRAZOLE 40 MG TABLET PO SCH (08:58)
[2022-04-11] MEDS: ALBUMIN 25% 12.5 GM/50 ML VIAL IV SCH ×2 (08:59→22:11)
[2022-04-11] MEDS: SODIUM BICARBONATE 650 MG TABLET PO SCH ×2 (08:59→22:47)
[2022-04-11] MEDS ORDERED: SODIUM ZIRCONIUM CYCLOSILICATE 10 GM PACK PO SCH (11:30)
[2022-04-11] MEDS: SODIUM CHLORIDE 0.9% 1,000 ML IV SCH (15:02)
[2022-04-11] MEDS ORDERED: ZALEPLON 5 MG CAPSULE PO ONE (21:37)
[2022-04-12] MEDS: ALBUTEROL/IPRATROPIUM 3 ML NEB RESP TX SCH ×4 (01:11→19:49)
[2022-04-12] MEDS: SODIUM CHLORIDE 0.9% 1,000 ML IV SCH (03:30)
[2022-04-12 06:02] LABS: Hematocrit 34.6 VOL% (35.7-47.0); Hemoglobin 10.8 GM/DL (12.0-16.0); Immature Granulocytes % 0.7 %; Immature Granulocytes Absolute 0.04 #; Lymphocytes # 0.3 10*3/uL (1.4-4.0); Lymphocytes % 4.6 % (21.3-54.2); Mean Corpuscular HGB Conc 31.2 GM/DL (32-36); Mean Corpuscular Volume 91.5 FL (87-102); Mean Platelet Volume 9.7 FL (9.6-12.0); Monocytes # 0.4 10*3/uL (0.11-0.8); Monocytes % 7.3 % (1.7-12.7); NRBC # 0.04 10*3/uL; Neutrophils % 87.4 % (38.7-73.9); Platelet Count 110 T/CUMM (130-400); Red Blood Count 3.78 MC/CUMM (3.8-5.5); Red Cell Distribution Width 15.9 % (9.3-17.3); White Blood Count 5.9 T/CUMM (4-12)
[2022-04-12 06:24] LABS: Calcium 9.7 MG/DL (8.5-10.1); Osmolality,Calculated 298.7 MOS/KG (273-304); Potassium 5.8 MMOL/L (3.5-5.1)
[2022-04-12 07:29] LABS: Band Neutrophils 1 % (0-10); Lymphocytes 1 % (20-55); Nucleated Red Blood Cells 2 /100 WBC (0-5); Total Cells Counted 100
[2022-04-12 07:30] LABS: Anisocytosis 1+
[2022-04-12 07:31] LABS: Burr Cells Slight; Platelet Estimate Decreased; Polychromasia Slight
[2022-04-12] MEDS ORDERED: SODIUM CHLORIDE 0.9% 1,000 ML IV SCH (08:30)
[2022-04-12] MEDS: ALBUMIN 25% 12.5 GM/50 ML VIAL IV SCH ×2 (09:27→21:42)
[2022-04-12] MEDS: SODIUM ZIRCONIUM CYCLOSILICATE 10 GM PACK PO SCH ×3 (09:35→21:43)
[2022-04-12] MEDS: ASPIRIN CHEW 81 MG TABLET PO SCH (09:35)
[2022-04-12] MEDS: PANTOPRAZOLE 40 MG TABLET PO SCH (09:36)
[2022-04-12] MEDS: ONDANSETRON 4 MG TABLET PO SCH ×3 (09:36→21:43)
[2022-04-12] MEDS: carvediloL 3.125 MG TABLET PO SCH ×2 (09:36→21:43)
[2022-04-12] MEDS: SODIUM BICARBONATE 650 MG TABLET PO SCH ×2 (09:45→21:58)
[2022-04-12] MEDS: DOCUSATE SODIUM 100 MG CAPSULE PO SCH ×2 (09:46→21:43)
[2022-04-12] MEDS: POLYETHYLENE GLYCOL POWDER 17 GM PACK PO SCH ×2 (09:46→21:45)
[2022-04-12] MEDS: SODIUM CHLORIDE/POTASSIUM CHLORIDE TABLET PO SCH ×3 (09:46→21:56)
[2022-04-12] MEDS: SODIUM BICARB INJ 50 MEQ in SODIUM CHLORIDE 0.9% 1,000 ML IV SCH (10:07)
[2022-04-12] MEDS: FUROSEMIDE 40 MG/4 ML VIAL IV SCH (10:13)
[2022-04-12] MEDS: guaiFENesin 200 MG/10 ML UDCUP PO PRN (21:58)
[2022-04-13] MEDS: SODIUM BICARB INJ 50 MEQ in SODIUM CHLORIDE 0.9% 1,000 ML IV SCH ×3 (00:11→17:00)
[2022-04-13] MEDS: ALBUTEROL/IPRATROPIUM 3 ML NEB RESP TX SCH ×4 (00:42→19:19)
[2022-04-13 05:39] LABS: Hematocrit 32.1 VOL% (35.7-47.0); Hemoglobin 10.2 GM/DL (12.0-16.0); Immature Granulocytes % 0.9 %; Immature Granulocytes Absolute 0.07 #; Lymphocytes # 0.2 10*3/uL (1.4-4.0); Lymphocytes % 2.7 % (21.3-54.2); Mean Corpuscular HGB Conc 31.8 GM/DL (32-36); Mean Corpuscular Volume 90.2 FL (87-102); Mean Platelet Volume 9.9 FL (9.6-12.0); Monocytes # 0.4 10*3/uL (0.11-0.8); Monocytes % 4.9 % (1.7-12.7); NRBC # 0.06 10*3/uL; Neutrophils % 91.5 % (38.7-73.9); Platelet Count 77 T/CUMM (130-400); Red Blood Count 3.56 MC/CUMM (3.8-5.5); Red Cell Distribution Width 15.8 % (9.3-17.3)
[2022-04-13 05:53] LABS: Calcium 9.7 MG/DL (8.5-10.1); Osmolality,Calculated 306.4 MOS/KG (273-304); Potassium 5.6 MMOL/L (3.5-5.1)
[2022-04-13 05:58] LABS: Acanthocytes Few; Band Neutrophils 1 % (0-10); Lymphocytes 2 % (20-55); Nucleated Red Blood Cells 1 /100 WBC (0-5); Polychromasia Slight; Target Cells Slight; Total Cells Counted 100
[2022-04-13 05:59] LABS: Microcytosis 1+
[2022-04-13 06:00] LABS: Burr Cells Slight; Hypochromia Slight
[2022-04-13] MEDS: ASPIRIN CHEW 81 MG TABLET PO SCH (09:56)
[2022-04-13] MEDS: carvediloL 3.125 MG TABLET PO SCH ×2 (09:57→21:36)
[2022-04-13] MEDS: ONDANSETRON 4 MG TABLET PO SCH ×3 (09:57→21:36)
[2022-04-13] MEDS: PANTOPRAZOLE 40 MG TABLET PO SCH (09:57)
[2022-04-13] MEDS: SODIUM CHLORIDE/POTASSIUM CHLORIDE TABLET PO SCH ×3 (09:57→21:36)
[2022-04-13] MEDS: POLYETHYLENE GLYCOL POWDER 17 GM PACK PO SCH ×2 (09:58→21:31)
[2022-04-13] MEDS: DOCUSATE SODIUM 100 MG CAPSULE PO SCH ×2 (09:58→21:31)
[2022-04-13] MEDS: SODIUM BICARBONATE 650 MG TABLET PO SCH ×2 (09:59→21:35)
[2022-04-13] MEDS: SODIUM ZIRCONIUM CYCLOSILICATE 10 GM PACK PO SCH ×3 (10:04→21:36)
[2022-04-13] MEDS: ALBUMIN 25% 12.5 GM/50 ML VIAL IV SCH (10:05)
[2022-04-13] MEDS: FUROSEMIDE 40 MG/4 ML VIAL IV SCH (14:34)
[2022-04-14] MEDS: ALBUTEROL/IPRATROPIUM 3 ML NEB RESP TX SCH ×4 (00:40→19:30)
[2022-04-14 05:54] LABS: Hematocrit 33.2 VOL% (35.7-47.0); Hemoglobin 10.3 GM/DL (12.0-16.0); Immature Granulocytes % 1.5 %; Immature Granulocytes Absolute 0.13 #; Lymphocytes # 0.2 10*3/uL (1.4-4.0); Mean Corpuscular Volume 92.7 FL (87-102); Mean Platelet Volume 9.3 FL (9.6-12.0); Monocytes # 0.6 10*3/uL (0.11-0.8); Monocytes % 6.3 % (1.7-12.7); NRBC # 0.09 10*3/uL; Neutrophils % 90.2 % (38.7-73.9); Platelet Count 58 T/CUMM (130-400); Red Blood Count 3.58 MC/CUMM (3.8-5.5); Red Cell Distribution Width 16.4 % (9.3-17.3); White Blood Count 8.9 T/CUMM (4-12)
[2022-04-14 06:09] LABS: Calcium 9.1 MG/DL (8.5-10.1); Osmolality,Calculated 317.8 MOS/KG (273-304); Potassium 5.2 MMOL/L (3.5-5.1)
[2022-04-14 06:14] LABS: Nucleated Red Blood Cells 3 /100 WBC (0-5); Platelet Estimate Decreased; Total Cells Counted 100
[2022-04-14 06:15] LABS: Macrocytosis Slight; Polychromasia Slight
[2022-04-14] MEDS: SODIUM BICARB INJ 50 MEQ in SODIUM CHLORIDE 0.9% 1,000 ML IV SCH ×2 (06:40→21:28)
[2022-04-14] MEDS: ASPIRIN CHEW 81 MG TABLET PO SCH (10:48)
[2022-04-14] MEDS: PANTOPRAZOLE 40 MG TABLET PO SCH (10:48)
[2022-04-14] MEDS: ONDANSETRON 4 MG TABLET PO SCH ×3 (10:48→21:28)
[2022-04-14] MEDS: DOCUSATE SODIUM 100 MG CAPSULE PO SCH ×2 (12:13→21:25)
[2022-04-14] MEDS: POLYETHYLENE GLYCOL POWDER 17 GM PACK PO SCH ×2 (12:14→21:25)
[2022-04-14] MEDS: SODIUM CHLORIDE/POTASSIUM CHLORIDE TABLET PO SCH ×3 (12:14→21:27)
[2022-04-14] MEDS: SODIUM BICARBONATE 650 MG TABLET PO SCH ×2 (12:14→21:27)
[2022-04-14] MEDS: carvediloL 3.125 MG TABLET PO SCH ×2 (12:15→21:28)
[2022-04-14 12:42] LABS: Hepatitis B Core IgM Quant 0.13 Index; Hepatitis B Surface Ag Quant < 0.10 Index; Hepatitis B Surface Ag Result Non-Reactive (NonReactive); Hepatitis C Virus Ab Quant 0.14 Index; Hepatitis C Virus Ab Result Non-Reactive (NonReactive)
[2022-04-14] MEDS ORDERED: HEPARIN 10,000 UNIT/10 ML VIAL IV SCH (16:30)
[2022-04-14] MEDS: MIDODRINE 5 MG TABLET PO SCH (21:28)
[2022-04-15] MEDS: ALBUTEROL/IPRATROPIUM 3 ML NEB RESP TX SCH ×4 (00:20→20:24)
[2022-04-15] MEDS: carvediloL 3.125 MG TABLET PO SCH ×2 (11:12→20:59)
[2022-04-15] MEDS: SODIUM BICARB INJ 50 MEQ in SODIUM CHLORIDE 0.9% 1,000 ML IV SCH ×2 (11:50→18:23)
[2022-04-15] MEDS: SODIUM CHLORIDE/POTASSIUM CHLORIDE TABLET PO SCH ×3 (11:58→20:59)
[2022-04-15] MEDS: SODIUM BICARBONATE 650 MG TABLET PO SCH ×2 (11:58→20:59)
[2022-04-15] MEDS: POLYETHYLENE GLYCOL POWDER 17 GM PACK PO SCH ×2 (12:12→20:49)
[2022-04-15] MEDS: MIDODRINE 5 MG TABLET PO SCH ×3 (12:12→20:59)
[2022-04-15] MEDS: PANTOPRAZOLE 40 MG TABLET PO SCH (12:12)
[2022-04-15] MEDS: DOCUSATE SODIUM 100 MG CAPSULE PO SCH ×2 (12:12→20:59)
[2022-04-15] MEDS: ONDANSETRON 4 MG TABLET PO SCH ×3 (12:12→21:00)
[2022-04-15] MEDS: ASPIRIN CHEW 81 MG TABLET PO SCH (12:17)
[2022-04-16] MEDS: SODIUM BICARB INJ 50 MEQ in SODIUM CHLORIDE 0.9% 1,000 ML IV SCH ×3 (00:07→14:04)
[2022-04-16] MEDS: ALBUTEROL/IPRATROPIUM 3 ML NEB RESP TX SCH ×4 (00:28→19:29)
[2022-04-16] MEDS: ZALEPLON 5 MG CAPSULE PO PRN (04:00)
[2022-04-16 05:48] LABS: Basophils % 0.2 % (0.0-0.8); Hematocrit 31.1 VOL% (35.7-47.0); Hemoglobin 9.9 GM/DL (12.0-16.0); Immature Granulocytes % 0.2 %; Immature Granulocytes Absolute 0.02 #; Lymphocytes # 0.1 10*3/uL (1.4-4.0); Lymphocytes % 1.1 % (21.3-54.2); Mean Corpuscular HGB Conc 31.8 GM/DL (32-36); Mean Corpuscular Volume 90.1 FL (87-102); Mean Platelet Volume 12.5 FL (9.6-12.0); Monocytes # 0.4 10*3/uL (0.11-0.8); Monocytes % 4.7 % (1.7-12.7); NRBC # 0.09 10*3/uL; Neutrophils % 93.8 % (38.7-73.9); Red Blood Count 3.45 MC/CUMM (3.8-5.5); Red Cell Distribution Width 16.3 % (9.3-17.3); White Blood Count 8.7 T/CUMM (4-12)
[2022-04-16 05:51] LABS: Platelet Count 36 T/CUMM (130-400)
[2022-04-16 05:58] LABS: Calcium 8.5 MG/DL (8.5-10.1); Osmolality,Calculated 298.1 MOS/KG (273-304); Potassium 3.9 MMOL/L (3.5-5.1)
[2022-04-16 06:14] LABS: Band Neutrophils 6 % (0-10); Lymphocytes 2 % (20-55); Total Cells Counted 100
[2022-04-16 06:15] LABS: Hypochromia Slight; Macrocytosis Slight; Platelet Estimate Decreased
[2022-04-16] MEDS ORDERED: ALBUMIN 25% 12.5 GM/50 ML VIAL IV PRN (09:03)
[2022-04-16] MEDS: ONDANSETRON 4 MG TABLET PO SCH ×3 (09:56→22:40)
[2022-04-16] MEDS: PANTOPRAZOLE 40 MG TABLET PO SCH (09:56)
[2022-04-16] MEDS: MIDODRINE 5 MG TABLET PO SCH ×3 (09:56→22:27)
[2022-04-16] MEDS: DOCUSATE SODIUM 100 MG CAPSULE PO SCH ×2 (09:56→22:32)
[2022-04-16] MEDS: SODIUM CHLORIDE/POTASSIUM CHLORIDE TABLET PO SCH ×3 (09:56→22:27)
[2022-04-16] MEDS: SODIUM BICARBONATE 650 MG TABLET PO SCH ×2 (09:57→22:28)
[2022-04-16] MEDS: POLYETHYLENE GLYCOL POWDER 17 GM PACK PO SCH ×2 (09:57→22:31)
[2022-04-16] MEDS: carvediloL 3.125 MG TABLET PO SCH ×2 (10:04→22:31)
[2022-04-16] MEDS: CYPROHEPTADINE 4 MG TABLET PO SCH ×2 (16:24→22:28)
[2022-04-16] MEDS: ONDANSETRON 4 MG/2 ML VIAL IV PRN (22:27)
[2022-04-17] MEDS: ALBUTEROL/IPRATROPIUM 3 ML NEB RESP TX SCH ×4 (02:09→19:58)
[2022-04-17 05:21] LABS: Basophils # 0.1 10*3/uL (0.0-0.2); Basophils % 0.7 % (0.0-0.8); Hematocrit 30.4 VOL% (35.7-47.0); Hemoglobin 9.6 GM/DL (12.0-16.0); Lymphocytes # 0.2 10*3/uL (1.4-4.0); Lymphocytes % 2.1 % (21.3-54.2); Mean Corpuscular HGB Conc 31.6 GM/DL (32-36); Mean Corpuscular Volume 90.7 FL (87-102); Monocytes # 0.5 10*3/uL (0.11-0.8); NRBC # 0.08 10*3/uL; Neutrophils % 91.2 % (38.7-73.9); Platelet Count 41 T/CUMM (130-400); Red Blood Count 3.35 MC/CUMM (3.8-5.5); Red Cell Distribution Width 16.8 % (9.3-17.3); White Blood Count 7.6 T/CUMM (4-12)
[2022-04-17 05:28] LABS: Calcium 8.7 MG/DL (8.5-10.1); Osmolality,Calculated 297.7 MOS/KG (273-304); Potassium 3.6 MMOL/L (3.5-5.1)
[2022-04-17 05:58] LABS: Band Neutrophils 2 % (0-10); Lymphocytes 2 % (20-55); Nucleated Red Blood Cells 1 /100 WBC (0-5); Total Cells Counted 100
[2022-04-17 05:59] LABS: Burr Cells Few; Platelet Estimate Decreased
[2022-04-17] MEDS: SODIUM BICARB INJ 50 MEQ in SODIUM CHLORIDE 0.9% 1,000 ML IV SCH ×3 (06:04→18:55)
[2022-04-17] MEDS: DOCUSATE SODIUM 100 MG CAPSULE PO SCH ×2 (09:54→20:44)
[2022-04-17] MEDS: SODIUM CHLORIDE/POTASSIUM CHLORIDE TABLET PO SCH ×3 (09:54→20:44)
[2022-04-17] MEDS: SODIUM BICARBONATE 650 MG TABLET PO SCH ×2 (09:54→20:44)
[2022-04-17] MEDS: MIDODRINE 5 MG TABLET PO SCH ×3 (09:55→20:44)
[2022-04-17] MEDS: CYPROHEPTADINE 4 MG TABLET PO SCH ×3 (09:55→20:44)
[2022-04-17] MEDS: PANTOPRAZOLE 40 MG TABLET PO SCH (09:55)
[2022-04-17] MEDS: ONDANSETRON 4 MG TABLET PO SCH ×3 (09:55→20:44)
[2022-04-17] MEDS: AMIODARONE 200 MG TABLET PO SCH (09:57)
[2022-04-17] MEDS: carvediloL 3.125 MG TABLET PO SCH (10:02)
[2022-04-17] MEDS: POLYETHYLENE GLYCOL POWDER 17 GM PACK PO SCH ×2 (10:02→20:44)
[2022-04-17] MEDS: ACETAMINOPHEN 325 MG TABLET PO PRN (18:15)
[2022-04-17] MEDS: ZALEPLON 5 MG CAPSULE PO PRN (23:34)
[2022-04-18] MEDS: ALBUTEROL/IPRATROPIUM 3 ML NEB RESP TX SCH ×4 (00:16→20:08)
[2022-04-18] MEDS: SODIUM BICARB INJ 50 MEQ in SODIUM CHLORIDE 0.9% 1,000 ML IV SCH ×3 (03:48→22:36)
[2022-04-18 04:42] LABS: Basophils % 0.4 % (0.0-0.8); Hematocrit 30.4 VOL% (35.7-47.0); Hemoglobin 9.6 GM/DL (12.0-16.0); Immature Granulocytes % 0.5 %; Immature Granulocytes Absolute 0.04 #; Lymphocytes # 0.2 10*3/uL (1.4-4.0); Lymphocytes % 2.1 % (21.3-54.2); Mean Corpuscular HGB Conc 31.6 GM/DL (32-36); Mean Corpuscular Volume 89.1 FL (87-102); Mean Platelet Volume 12.7 FL (9.6-12.0); Monocytes # 0.5 10*3/uL (0.11-0.8); Monocytes % 5.9 % (1.7-12.7); NRBC # 0.14 10*3/uL; Neutrophils % 91.1 % (38.7-73.9); Red Blood Count 3.41 MC/CUMM (3.8-5.5); Red Cell Distribution Width 16.9 % (9.3-17.3); White Blood Count 8.2 T/CUMM (4-12)
[2022-04-18 04:46] LABS: Platelet Count 41 T/CUMM (130-400)
[2022-04-18 05:03] LABS: Calcium 8.8 MG/DL (8.5-10.1); Osmolality,Calculated 308.4 MOS/KG (273-304); Potassium 3.6 MMOL/L (3.5-5.1)
[2022-04-18 05:11] LABS: Lymphocytes 3 % (20-55); Nucleated Red Blood Cells 3 /100 WBC (0-5); Platelet Estimate Decreased; Target Cells Slight; Total Cells Counted 100
[2022-04-18] MEDS: MIDODRINE 5 MG TABLET PO SCH ×3 (12:12→20:30)
[2022-04-18] MEDS: DOCUSATE SODIUM 100 MG CAPSULE PO SCH ×2 (12:12→20:31)
[2022-04-18] MEDS: ONDANSETRON 4 MG TABLET PO SCH ×3 (12:12→20:30)
[2022-04-18] MEDS: SODIUM BICARBONATE 650 MG TABLET PO SCH ×2 (12:12→20:30)
[2022-04-18] MEDS: AMIODARONE 200 MG TABLET PO SCH (12:12)
[2022-04-18] MEDS: SODIUM CHLORIDE/POTASSIUM CHLORIDE TABLET PO SCH ×2 (12:12→18:33)
[2022-04-18] MEDS: POLYETHYLENE GLYCOL POWDER 17 GM PACK PO SCH ×2 (12:13→22:34)
[2022-04-18] MEDS: CYPROHEPTADINE 4 MG TABLET PO SCH ×3 (12:13→20:30)
[2022-04-18] MEDS: PANTOPRAZOLE 40 MG TABLET PO SCH (12:13)
[2022-04-18] MEDS: ZALEPLON 5 MG CAPSULE PO PRN (23:38)
[2022-04-19] MEDS: ALBUTEROL/IPRATROPIUM 3 ML NEB RESP TX SCH ×4 (01:26→19:10)
[2022-04-19] MEDS: SODIUM CHLORIDE/POTASSIUM CHLORIDE TABLET PO SCH ×4 (06:32→23:16)
[2022-04-19 06:54] LABS: Basophils % 0.3 % (0.0-0.8); Hematocrit 30.6 VOL% (35.7-47.0); Hemoglobin 9.5 GM/DL (12.0-16.0); Immature Granulocytes % 0.3 %; Immature Granulocytes Absolute 0.02 #; Lymphocytes # 0.2 10*3/uL (1.4-4.0); Lymphocytes % 3.2 % (21.3-54.2); Mean Corpuscular Volume 89.5 FL (87-102); Mean Platelet Volume 12.9 FL (9.6-12.0); Monocytes # 0.3 10*3/uL (0.11-0.8); Monocytes % 4.6 % (1.7-12.7); NRBC # 0.08 10*3/uL; Neutrophils % 91.6 % (38.7-73.9); Red Blood Count 3.42 MC/CUMM (3.8-5.5); Red Cell Distribution Width 17.2 % (9.3-17.3); White Blood Count 6.5 T/CUMM (4-12)
[2022-04-19 06:56] LABS: Platelet Count 31 T/CUMM (130-400)
[2022-04-19 07:12] LABS: Calcium 8.7 MG/DL (8.5-10.1); Osmolality,Calculated 302.6 MOS/KG (273-304); Potassium 3.6 MMOL/L (3.5-5.1)
[2022-04-19 07:13] LABS: Band Neutrophils 1 % (0-10); Lymphocytes 4 % (20-55); Nucleated Red Blood Cells 3 /100 WBC (0-5); Platelet Estimate Decreased; Total Cells Counted 100
[2022-04-19] MEDS: POLYETHYLENE GLYCOL POWDER 17 GM PACK PO SCH ×2 (09:26→23:16)
[2022-04-19] MEDS: DOCUSATE SODIUM 100 MG CAPSULE PO SCH ×2 (09:26→23:16)
[2022-04-19] MEDS: AMIODARONE 200 MG TABLET PO SCH (09:26)
[2022-04-19] MEDS: MIDODRINE 5 MG TABLET PO SCH ×3 (09:28→23:12)
[2022-04-19] MEDS: CYPROHEPTADINE 4 MG TABLET PO SCH ×3 (09:28→23:12)
[2022-04-19] MEDS: SODIUM BICARBONATE 650 MG TABLET PO SCH ×2 (09:33→23:12)
[2022-04-19] MEDS: PANTOPRAZOLE 40 MG TABLET PO SCH (09:33)
[2022-04-19] MEDS: ONDANSETRON 4 MG TABLET PO SCH ×3 (09:34→23:12)
[2022-04-19] MEDS: SODIUM BICARB INJ 50 MEQ in SODIUM CHLORIDE 0.9% 1,000 ML IV SCH (13:45)
[2022-04-19] MEDS: ZALEPLON 5 MG CAPSULE PO PRN (23:13)
[2022-04-20] MEDS: ALBUTEROL/IPRATROPIUM 3 ML NEB RESP TX SCH ×4 (00:01→19:52)
[2022-04-20 04:49] LABS: Basophils % 0.1 % (0.0-0.8); Hematocrit 28.4 VOL% (35.7-47.0); Hemoglobin 8.9 GM/DL (12.0-16.0); Immature Granulocytes % 0.9 %; Immature Granulocytes Absolute 0.06 #; Lymphocytes # 0.2 10*3/uL (1.4-4.0); Lymphocytes % 3.1 % (21.3-54.2); Mean Corpuscular HGB Conc 31.3 GM/DL (32-36); Mean Corpuscular Volume 89.3 FL (87-102); Mean Platelet Volume 12.8 FL (9.6-12.0); Monocytes # 0.3 10*3/uL (0.11-0.8); Monocytes % 4.4 % (1.7-12.7); NRBC # 0.07 10*3/uL; Neutrophils % 91.5 % (38.7-73.9); Red Blood Count 3.18 MC/CUMM (3.8-5.5); Red Cell Distribution Width 17.2 % (9.3-17.3); White Blood Count 6.9 T/CUMM (4-12)
[2022-04-20 04:54] LABS: Platelet Count 30 T/CUMM (130-400)
[2022-04-20 05:09] LABS: Band Neutrophils 1 % (0-10); Lymphocytes 2 % (20-55); Nucleated Red Blood Cells 1 /100 WBC (0-5); Total Cells Counted 100
[2022-04-20 05:10] LABS: Anisocytosis 1+; Hypochromia Slight; Target Cells Few
[2022-04-20 05:11] LABS: Platelet Estimate Decreased
[2022-04-20 05:16] LABS: Calcium 8.6 MG/DL (8.5-10.1); Osmolality,Calculated 305.7 MOS/KG (273-304); Potassium 3.8 MMOL/L (3.5-5.1)
[2022-04-20] MEDS: DOCUSATE SODIUM 100 MG CAPSULE PO SCH ×2 (09:50→21:52)
[2022-04-20] MEDS: SODIUM CHLORIDE/POTASSIUM CHLORIDE TABLET PO SCH (09:54)
[2022-04-20] MEDS: MIDODRINE 5 MG TABLET PO SCH ×3 (09:54→21:52)
[2022-04-20] MEDS: AMIODARONE 200 MG TABLET PO SCH (09:54)
[2022-04-20] MEDS: CYPROHEPTADINE 4 MG TABLET PO SCH ×3 (09:55→21:52)
[2022-04-20] MEDS: ONDANSETRON 4 MG TABLET PO SCH ×3 (09:55→21:52)
[2022-04-20] MEDS: SODIUM BICARBONATE 650 MG TABLET PO SCH (09:55)
[2022-04-20] MEDS: POLYETHYLENE GLYCOL POWDER 17 GM PACK PO SCH ×2 (09:56→21:52)
[2022-04-20] MEDS: PANTOPRAZOLE 40 MG TABLET PO SCH (09:56)
[2022-04-20] MEDS: ACETAMINOPHEN 325 MG TABLET PO PRN (16:54)
[2022-04-21] MEDS: ZALEPLON 5 MG CAPSULE PO PRN (00:37)
[2022-04-21] MEDS: ALBUTEROL/IPRATROPIUM 3 ML NEB RESP TX SCH ×3 (01:13→13:32)
[2022-04-21 05:08] LABS: Basophils % 0.3 % (0.0-0.8); Hematocrit 29.2 VOL% (35.7-47.0); Hemoglobin 9.2 GM/DL (12.0-16.0); Immature Granulocytes % 0.7 %; Immature Granulocytes Absolute 0.04 #; Lymphocytes # 0.2 10*3/uL (1.4-4.0); Lymphocytes % 2.9 % (21.3-54.2); Mean Corpuscular HGB Conc 31.5 GM/DL (32-36); Mean Corpuscular Volume 89.8 FL (87-102); Monocytes # 0.2 10*3/uL (0.11-0.8); Monocytes % 3.5 % (1.7-12.7); NRBC # 0.08 10*3/uL; Neutrophils % 92.6 % (38.7-73.9); Platelet Count 41 T/CUMM (130-400); Red Blood Count 3.25 MC/CUMM (3.8-5.5); Red Cell Distribution Width 17.5 % (9.3-17.3)
[2022-04-21 05:31] LABS: Nucleated Red Blood Cells 1 /100 WBC (0-5); Total Cells Counted 100
[2022-04-21 05:32] LABS: Hypochromia Slight; Microcytosis Slight; Ovalocytes Slight; Platelet Estimate Decreased; Target Cells Slight
[2022-04-21 05:39] LABS: Calcium 9.2 MG/DL (8.5-10.1); Osmolality,Calculated 307.7 MOS/KG (273-304); Potassium 4.5 MMOL/L (3.5-5.1)
[2022-04-21] MEDS: MIDODRINE 5 MG TABLET PO SCH ×2 (10:51→17:04)
[2022-04-21] MEDS: POLYETHYLENE GLYCOL POWDER 17 GM PACK PO SCH (10:51)
[2022-04-21] MEDS: DOCUSATE SODIUM 100 MG CAPSULE PO SCH (10:51)
[2022-04-21] MEDS: CYPROHEPTADINE 4 MG TABLET PO SCH ×2 (10:51→17:04)
[2022-04-21] MEDS: AMIODARONE 200 MG TABLET PO SCH (10:52)
[2022-04-21] MEDS: PANTOPRAZOLE 40 MG TABLET PO SCH (10:52)
[2022-04-21] MEDS: ONDANSETRON 4 MG TABLET PO SCH ×2 (10:52→17:04)
[2022-04-21 16:57] VITALS: BP 93/47
[2022-04-21] MEDS ORDERED: MORPHINE 2 MG/1 ML SYRINGE IV PRN (19:34)
[2022-04-21] MEDS ORDERED: LORazepam 2 MG/1 ML VIAL IV PRN (19:36)
== END 2022-04-21 17:48 | disposition hospice, inpatient (51) | DRG 291 ==
LOC: N.EDINP 04:24 → N.ED 04:24 → SUATTDRO 06:02 → N.TELEN 06:53 → SUATTDRO 04-05 17:58 → UNDODISIN 04-21 14:05
PROVIDERS: ADMIT Internal Medicine; ATTEND Internal Medicine

== ENCOUNTER 2022-04-21 14:06 | Inpatient (IN) ==
[2022-04-21] MEDS ORDERED: MORPHINE 2 MG/1 ML SYRINGE IV PRN (20:07)
[2022-04-21] MEDS ORDERED: LORazepam 2 MG/1 ML VIAL IV PRN (20:09)
[2022-04-22 05:07] VITALS: BP 88/53
== END 2022-04-22 07:43 | disposition expired | DRG 951 ==
LOC: N.TELEN 14:06
PROVIDERS: ADMIT Internal Medicine; ATTEND Internal Medicine